=== PATIENT | female | born 1950 | race Caucasian/White ===

== ENCOUNTER → 2017-06-07 | Outpatient (CLI) | payer MEDICARE, OTHER ==
[~2017-06-07] MED LIST: ALAVERT10 M1 PO; ANTIVERT25 MG PO; ASPIR-LOW81 MG PO; ASPIRIN81 M1 PO; ATOXIMETIN-B1 CAP PO; B12,B-12,B 12500 MC1 PO; CENTRUM1 TAB PO; CIPRO XR500 MG PO; FLEXERIL10 MG PO; KENALOG 0.025%15 GM PO; LISINOPRIL5 MG PO; LORATADINE10 M1 PO; MASON NATURAL2000 IU PO; METOCLOPRAMIDE10 M3 PO; METOCLOPRAMIDE5 MG PO; MOTRIN800 MG PO; OMEPRAZOLE20 MG PO; PRED FORTE OP; PRED MILD OPH; PRILOSEC20 MG PO; PROCHLORPERAZIN10 MG PO; REGLAN10 MG PO; SERTRALINE100 MG PO; SIMVASTATIN20 MG PO; TENORMIN25 MG PO; TRAMADOL HCL50 MG PO; TRAMADOL50 MG PO; ULTRAM50 MG PO; VITAMIN B12500 MCG PO; XANAX0.25 MG PO; ZESTRIL5 MG PO; ZOCOR10 MG PO; ZOLOFT100 MG PO; [UNRECOGNIZED DRUG - OTHER] PO
[2017-06-07 07:40] LABS: HEMATOCRIT 45.8 % (37.0-47.0); HEMOGLOBIN 14.7 g/dl (12.0-16.0); MEAN CELL VOLUME 86.4 fl (81.0-99.0); MEAN CORPUSCULAR HGB 27.7 pg (27.0-31.0); MEAN CORPUSCULAR HGB CONC 32.1 g/dl (33.0-37.0); MEAN PLATELET VOLUME 9.3 fl (9.6-12.3); RED BLOOD COUNT 5.3 10*6/uL (4.10-5.10); RED CELL DISTRI WIDTH 13.1 % (0-14.5); WHITE BLOOD COUNT 6.7 10*3/uL (4.8-10.8)
[2017-06-07 08:18] LABS: ALBUMIN 3.6 gm/dl (3.1-4.5); ALKALINE PHOSPHATASE 86 U/L (45-117); BUN 13 mg/dl (7-24); CHLORIDE 104 mmol/L (98-107); CHOLESTEROL 169 mg/dL (<200); CREATININE 0.93 mg/dL (0.55-1.02); HDL CHOLESTEROL 61 mg/dl (40-60); LDL CHOLESTEROL 71 mg/dL (9-159); SGOT/AST 29 IU/L (3-35); SGPT/ALT 36 U/L (12-78); SODIUM 142 mmol/L (136-145); TOTAL PROTEIN 7.3 gm/dL (6.4-8.2); TRIGLYCERIDES 185 mg/dl (<150); VLDL CHOLESTEROL 37 mg/dL (6-40)
== END | disposition home or self-care (01) ==
LOC: LAB 07:22
DX: E78.00 Pure hypercholesterolemia, unspecified (principal); F41.9 Anxiety disorder, unspecified; I10 Essential (primary) hypertension; K21.9 Gastro-esophageal reflux disease without esophagitis; E55.9 Vitamin D deficiency, unspecified

== ENCOUNTER → 2017-09-17 | Outpatient (CLI) | payer MEDICARE, OTHER ==
[~2017-09-17] MED LIST changes: +CALCIUM 500 MG1 EACH PO; -KENALOG 0.025%15 GM PO; +KENALOG 0.025%15 GM T; +LISINOPRIL10 M1 PO; -LISINOPRIL5 MG PO; +Meclizine25 MG PO; +NORVASC5 MG PO; +PRED FORTE OPH; -SERTRALINE100 MG PO; +VITAMIN D-32000 UNI1 PO; +ZANTAC 300300 MG PO
--- NOTE | ~2017-09-17 | ST ---
[place], [place] EXERCISE STRESS TEST REPORT NAME: ALDO DOMINGUEZ [facility] #: [id number] UNIT #: [id number] ROOM: DOCTOR: ARLENE CAMACHO MD BIRTHDATE: [birth year] DOS: 09/17/2017 REFERRING PHYSICIAN: Dr. Magana. INDICATION: Shortness of breath, abnormal EKG. The patient underwent standard protocol Lexiscan stress EKG. The patient's baseline EKG showed normal sinus rhythm with nonspecific ST-T wave changes. The patient's baseline heart rate 65 with a blood pressure 130/72. The patient's peak heart rate was 88 with a blood pressure 140/60. The patient had no chest pain, no EKG changes, no arrhythmias. SUMMARY OF FINDINGS: Unremarkable Lexiscan stress EKG. Please see separate report for perfusion scan imaging. ARLENE CAMACHO MD CM:STRESS:EXERCISE STRESS TEST REPORT [id number] ARLENE CAMACHO MD
== END | disposition home or self-care (01) ==
LOC: CARD 08-21 10:00
DX: R06.02 Shortness of breath (principal); R94.31 Abnormal electrocardiogram [ECG] [EKG]

== ENCOUNTER → 2017-11-29 | Day surgery (SDC) | payer MEDICARE, OTHER ==
[~2017-11-29] VITALS: Ht 165.1 cm; Wt 99.8 kg
[~2017-11-29] MED LIST changes: +CLARITIN10 MG PO
--- NOTE | ~2017-11-29 | O ---
[place], [place] OPERATIVE NOTE NAME: ALDO DOMINGUEZ UNIT #: [id number] ROOM: DOCTOR: ARANZA HOWE MD BIRTHDATE: [birth year] DOS: 11/29/2017 INDICATIONS: A 67-year-old patient who presented with dyspepsia, dysphagia, status post history of gastric bypass, history of colonic polyp. PAST MEDICAL HISTORY: Obesity, hypertension, anxiety, hypercholesterolemia. PAST SURGICAL HISTORY: Bilateral knee gastric bypass. ALLERGIES: No known medication. FAMILY HISTORY: Noncontributory. SOCIAL HISTORY: Nonsmoker, nonalcohol consumer. PROCEDURE: Today's procedure part of investigation is panendoscopy and colonoscopy. PREMEDICATION: Propofol. SCOPE: Olympus forward-viewing gastroscope Q10 video. REPORT: After putting the patient in left lateral position and application of lubricant to the scope, the scope was introduced. Thereafter, under direct visualization, advanced through the length of esophagus without difficulty. Gastric pouch was entered, residual gastric pouch was identified. Gastric bypass configuration was noticed that appears to be like Rosy-en-Y biopsies from gastric pouch was a residual area was obtained for H. pylori. Air was suctioned out. At this stage, a balloon size 20 was introduced into the gastric residual pouch and inflated to size 20 and orally extracted. Highest resistance at upper esophagus was noticed. The stricture dilated. The patient tolerated the procedure well. IMPRESSION: Status post gastric bypass configuration gastritis, status post esophageal balloon dilation for cervical stricture. PLAN AND DISCUSSION: I am going to continue with her ranitidine 300 mg at bedtime and she is on multiple medications including aspirin, antireflux, advice was given, followup routinely with you in office, p.r.n. visit with us in GI Clinic. Thank you very much indeed for your kind referral. Endoscopic repair surgery, the patient with a history of colonic polyp, undergoing investigation. OPERATIVE TECHNIQUE: Today's procedure part of investigation is colonoscopy plus piecemeal polypectomy. A small sessile polypoid lesion in sigmoid colon. REPORT: After putting the patient in left lateral position and application of [place], [place] OPERATIVE NOTE NAME: ALDO DOMINGUEZ UNIT #: [id number] ROOM: DOCTOR: ARANZA HOWE MD BIRTHDATE: [birth year] lubricant to the scope, the scope was introduced. Thereafter, under direct visualization, advanced through the length of colon without difficulty to base of cecum. The ileocecal valve was defined. Photographic series obtained. Air was suctioned out. The patient was extubated to the level of sigmoid colon with multiple diverticula also was identified. Sessile polypoid lesion. This was with piecemeal polypectomy removed. Air was suctioned out. The patient was extubated, tolerated the procedure well. IMPRESSION: Diverticulosis of colon, sessile colonic polyp, sigmoid colon, status post piecemeal polypectomy. PLAN: Resumption of feeding activities with holding aspirin for 2 days postop. Thank you for your kind referral. ARANZA HOWE MD CM:OPRECORD:OPERATIVE NOTE [id number] ARANZA HOWE MD 11/29/17 [id number] interface
[2017-11-29 13:30] VITALS: BP 151/70
[2017-11-29 16:16] VITALS: BP 120/62
[2017-11-29 16:31] VITALS: BP 155/83
[2017-11-29 16:38] VITALS: BP 149/85
== END | disposition home or self-care (01) ==
LOC: SDC 11-28 10:15
DX: Z12.11 Encounter for screening for malignant neoplasm of colon (principal); K63.5 Polyp of colon; K57.30 Diverticulosis of large intestine without perforation or abscess without bleeding; K29.50 Unspecified chronic gastritis without bleeding; K22.2 Esophageal obstruction; I11.0 Hypertensive heart disease with heart failure; I50.9 Heart failure, unspecified; K21.9 Gastro-esophageal reflux disease without esophagitis; E78.00 Pure hypercholesterolemia, unspecified; E07.9 Disorder of thyroid, unspecified; F41.9 Anxiety disorder, unspecified; F32.9 Major depressive disorder, single episode, unspecified; E66.09 Other obesity due to excess calories; Z98.84 Bariatric surgery status; Z79.82 Long term (current) use of aspirin; Z79.899 Other long term (current) drug therapy; Z96.653 Presence of artificial knee joint, bilateral; Z98.890 Other specified postprocedural states

== ENCOUNTER → 2018-03-21 | Outpatient (CLI) | payer MEDICARE, OTHER | END | disposition home or self-care (01) | LOC: RAD 11:25 | DX: M19.072 Primary osteoarthritis, left ankle and foot (principal); M79.672 Pain in left foot; F51.01 Primary insomnia; E11.9 Type 2 diabetes mellitus without complications ==

== ENCOUNTER → 2018-07-24 | Outpatient (CLI) | payer MEDICARE, OTHER | END | disposition home or self-care (01) | LOC: MAMMO 07-17 07:40 | DX: Z12.31 Encounter for screening mammogram for malignant neoplasm of breast (principal) ==

== ENCOUNTER → 2019-12-28 | Outpatient (CLI) | payer MEDICARE ==
[2019-12-28 09:14] LABS: HEMATOCRIT 40.5 % (37.0-47.0); MEAN CELL VOLUME 78.6 fl (81.0-99.0); MEAN CORPUSCULAR HGB 23.7 pg (27.0-31.0); MEAN CORPUSCULAR HGB CONC 30.1 g/dl (33.0-37.0); MEAN PLATELET VOLUME 9.7 fl (9.6-12.3); RED BLOOD COUNT 5.15 10*6/uL (4.10-5.10); RED CELL DISTRI WIDTH 15.4 % (0-14.5); WHITE BLOOD COUNT 6.4 10*3/uL (4.8-10.8)
[2019-12-28 09:41] LABS: ALBUMIN 3.7 gm/dl (3.1-4.5); BUN 20 mg/dl (7-24); CHLORIDE 107 mmol/L (98-107); POTASSIUM 3.9 mmol/L (3.5-5.1); SODIUM 139 mmol/L (136-145)
[2019-12-28 09:54] LABS: ALKALINE PHOSPHATASE 79 U/L (45-117); CHOLESTEROL 161 mg/dL (<200); CREATININE 0.91 mg/dL (0.55-1.02); HDL CHOLESTEROL 59 mg/dl (40-60); LDL CHOLESTEROL 69 mg/dL (9-159); SGOT/AST 21 IU/L (3-35); SGPT/ALT 32 U/L (12-78); TOTAL PROTEIN 7.7 gm/dL (6.4-8.2); TRIGLYCERIDES 164 mg/dl (<150); VLDL CHOLESTEROL 33 mg/dL (6-40)
== END | disposition home or self-care (01) ==
LOC: LAB 07:47 → MAMMO 08:00
PROVIDERS: Physician Assistant
DX: Z12.31 Encounter for screening mammogram for malignant neoplasm of breast (principal); I10 Essential (primary) hypertension; E78.00 Pure hypercholesterolemia, unspecified; F41.9 Anxiety disorder, unspecified; E11.9 Type 2 diabetes mellitus without complications; K21.9 Gastro-esophageal reflux disease without esophagitis; E53.8 Deficiency of other specified B group vitamins

== ENCOUNTER → 2021-01-04 | Outpatient (CLI) | payer MEDICARE ==
[2021-01-04 11:02] LABS: ALBUMIN 3.8 gm/dl (3.1-4.5); ALKALINE PHOSPHATASE 74 U/L (45-117); BUN 14 mg/dl (7-24); CHLORIDE 107 mmol/L (98-107); CREATININE 0.78 mg/dL (0.55-1.02); POTASSIUM 4.5 mmol/L (3.5-5.1); SGOT/AST 23 IU/L (3-35); SGPT/ALT 34 U/L (12-78); SODIUM 140 mmol/L (136-145); TOTAL PROTEIN 7.4 gm/dL (6.4-8.2)
== END | disposition home or self-care (01) ==
LOC: RESCLI 00:23 → LAB 00:23 → RESCLI 06:49
PROVIDERS: Internal Medicine; ATTEND Emergency Medicine
DX: R42 Dizziness and giddiness (principal); F41.9 Anxiety disorder, unspecified; I11.0 Hypertensive heart disease with heart failure; I50.9 Heart failure, unspecified; E11.9 Type 2 diabetes mellitus without complications; K21.9 Gastro-esophageal reflux disease without esophagitis; E78.00 Pure hypercholesterolemia, unspecified; E53.8 Deficiency of other specified B group vitamins; E55.9 Vitamin D deficiency, unspecified; D50.8 Other iron deficiency anemias; R25.2 Cramp and spasm; Z94.7 Corneal transplant status; Z91.09 Other allergy status, other than to drugs and biological substances; Z79.82 Long term (current) use of aspirin; Z79.899 Other long term (current) drug therapy

== ENCOUNTER → 2021-06-28 | Outpatient (CLI) | payer OTHER ==
[2021-06-28 10:27] LABS: HEMATOCRIT 41.8 % (37.0-47.0); MEAN CELL VOLUME 80.4 fl (81.0-99.0); MEAN CORPUSCULAR HGB 24.2 pg (27.0-31.0); MEAN CORPUSCULAR HGB CONC 30.1 g/dl (33.0-37.0); RED BLOOD COUNT 5.2 10*6/uL (4.10-5.10); RED CELL DISTRI WIDTH 14.6 % (0-14.5); WHITE BLOOD COUNT 7.4 10*3/uL (4.8-10.8)
[2021-06-28 10:41] LABS: IRON 26 ug/dL (50-170); TOTAL IRON BINDING CAPACITY 457 ug/dl (250-450)
== END | disposition home or self-care (01) ==
LOC: RESCLI 00:59 → LAB 00:59 → RESCLI 07:06
PROVIDERS: ATTEND Physician Assistant
DX: E11.9 Type 2 diabetes mellitus without complications (principal); I10 Essential (primary) hypertension; Z79.899 Other long term (current) drug therapy; D50.8 Other iron deficiency anemias

== ENCOUNTER → 2021-08-07 | Outpatient (CLI) | payer OTHER | END | disposition home or self-care (01) | LOC: RESCLI 00:09 | PROVIDERS: ATTEND Internal Medicine Nephrology | DX: K21.9 Gastro-esophageal reflux disease without esophagitis (principal); F41.9 Anxiety disorder, unspecified; Z91.09 Other allergy status, other than to drugs and biological substances; Z94.7 Corneal transplant status; F51.01 Primary insomnia; E53.8 Deficiency of other specified B group vitamins; E55.9 Vitamin D deficiency, unspecified; K58.2 Mixed irritable bowel syndrome; R42 Dizziness and giddiness; D50.8 Other iron deficiency anemias; E11.9 Type 2 diabetes mellitus without complications; K57.30 Diverticulosis of large intestine without perforation or abscess without bleeding; I50.9 Heart failure, unspecified; I11.9 Hypertensive heart disease without heart failure; Z79.899 Other long term (current) drug therapy; Z79.82 Long term (current) use of aspirin ==

== ENCOUNTER → 2022-03-05 | Outpatient (CLI) | payer OTHER | END | disposition home or self-care (01) | LOC: RAD 15:58 | PROVIDERS: ATTEND Physician Assistant | DX: I11.0 Hypertensive heart disease with heart failure (principal); I50.9 Heart failure, unspecified; E78.00 Pure hypercholesterolemia, unspecified; K21.9 Gastro-esophageal reflux disease without esophagitis; R06.02 Shortness of breath; F41.9 Anxiety disorder, unspecified ==

== ENCOUNTER → 2022-06-25 | Outpatient (CLI) | payer OTHER ==
[2022-06-25 17:15] LABS: BUN 11 mg/dl (9-23); CHLORIDE 102 mmol/L (98-107); POTASSIUM 3.8 mmol/L (3.4-5.1)
== END | disposition home or self-care (01) ==
LOC: LAB 16:37
PROVIDERS: ATTEND Physician Assistant
DX: I10 Essential (primary) hypertension (principal)

== ENCOUNTER → 2022-06-28 | Outpatient (CLI) | payer OTHER | END | disposition home or self-care (01) | LOC: CT 00:52 | PROVIDERS: ATTEND Physician Assistant | DX: E78.00 Pure hypercholesterolemia, unspecified (principal); I10 Essential (primary) hypertension; F41.9 Anxiety disorder, unspecified; I25.10 Atherosclerotic heart disease of native coronary artery without angina pectoris; K76.0 Fatty (change of) liver, not elsewhere classified; K57.32 Diverticulitis of large intestine without perforation or abscess without bleeding; N26.1 Atrophy of kidney (terminal); R63.4 Abnormal weight loss ==

== ENCOUNTER → 2022-08-02 | Outpatient (CLI) | payer OTHER | END | disposition home or self-care (01) | LOC: RESCLI 00:29 | PROVIDERS: ATTEND Internal Medicine | DX: K21.9 Gastro-esophageal reflux disease without esophagitis (principal); E78.00 Pure hypercholesterolemia, unspecified; E11.9 Type 2 diabetes mellitus without complications; I11.0 Hypertensive heart disease with heart failure; I50.9 Heart failure, unspecified; Z79.899 Other long term (current) drug therapy; Z94.7 Corneal transplant status; Z79.82 Long term (current) use of aspirin ==

== ENCOUNTER → 2022-08-14 | Outpatient (CLI) | payer OTHER ==
[~2022-08-14] MED LIST changes: +NATURAL LUTEIN20 MG PO; +PRED FORTE5 ML OU; +PROTONIX40 MG PO; +VITAMIN B121000 MC1 PO; +[UNRECOGNIZED DRUG - OTHER] PO
== END | disposition home or self-care (01) ==
LOC: CARD 01:15
PROVIDERS: ATTEND Internal Medicine Cardiovascular Disease
DX: R06.02 Shortness of breath (principal); R07.89 Other chest pain; I25.84 Coronary atherosclerosis due to calcified coronary lesion

== ENCOUNTER → 2022-10-24 | Outpatient (CLI) | payer OTHER | END | disposition home or self-care (01) | LOC: MAMMO 10:30 | PROVIDERS: ATTEND Physician Assistant | DX: Z12.31 Encounter for screening mammogram for malignant neoplasm of breast (principal); N64.9 Disorder of breast, unspecified; N63.11 Unspecified lump in the right breast, upper outer quadrant ==

== ENCOUNTER 2024-01-06 13:01 | Emergency (ER) | payer OTHER ==
[~2024-01-06] VITALS: Ht 165.1 cm; Wt 95.3 kg
[2024-01-06] MEDS ORDERED: ZESTRIL5 MG PO (13:12)
[2024-01-06] MEDS ORDERED: IRON325 M1 PO (13:17)
[2024-01-06] MEDS ORDERED: RANITIDINE HCL (13:18)
== END 2024-01-06 14:35 | disposition home or self-care (01) ==
LOC: ED 13:01
DX: S52.591A Other fractures of lower end of right radius, initial encounter for closed fracture (principal); F41.9 Anxiety disorder, unspecified; F32.A Depression, unspecified; K21.9 Gastro-esophageal reflux disease without esophagitis; M19.90 Unspecified osteoarthritis, unspecified site; J44.9 Chronic obstructive pulmonary disease, unspecified; E78.00 Pure hypercholesterolemia, unspecified; I11.0 Hypertensive heart disease with heart failure; I50.9 Heart failure, unspecified; Z90.49 Acquired absence of other specified parts of digestive tract; Z95.5 Presence of coronary angioplasty implant and graft; Z96.653 Presence of artificial knee joint, bilateral; Z98.890 Other specified postprocedural states; W19.XXXA Unspecified fall, initial encounter; Y93.89 Activity, other specified; Y92.89 Other specified places as the place of occurrence of the external cause; Y99.8 Other external cause status

== ENCOUNTER → 2024-01-15 | Outpatient (CLI) | payer OTHER ==
[~2024-01-15] MED LIST changes: +IRON325 M1 PO; +RANITIDINE HCL
== END | disposition home or self-care (01) ==
LOC: ORTHO 00:51
PROVIDERS: ATTEND Orthopaedic Surgery
DX: M19.031 Primary osteoarthritis, right wrist (principal)

== ENCOUNTER → 2024-01-29 | Outpatient (CLI) | payer OTHER | END | disposition home or self-care (01) | LOC: ORTHO 01:40 | PROVIDERS: ATTEND Orthopaedic Surgery | DX: M19.031 Primary osteoarthritis, right wrist (principal) ==

== ENCOUNTER → 2024-02-05 | Outpatient (CLI) | payer OTHER | END | disposition home or self-care (01) | LOC: ORTHO 00:53 | PROVIDERS: ATTEND Orthopaedic Surgery | DX: M19.031 Primary osteoarthritis, right wrist (principal) ==